=== PATIENT | female | born 1945 | race Caucasian/White ===

== ENCOUNTER → 2018-02-09 | Outpatient (CLI) | payer MEDICARE ==
--- NOTE | 2018-02-10 11:48 | MM ---
Reason for exam: screening (asymptomatic). Last mammogram was performed 2 years ago. History: Patient is postmenopausal. Physical Findings: A clinical breast exam by your physician is recommended on an annual basis and results should be correlated with mammographic findings. MG 3D Screening Mammo W/Cad Bilateral CC and MLO view(s) were taken. Prior study comparison: February 13, 2016, bilateral MG 3d screening mammo w/cad. March 08, 2014, bilateral MG screening mammo w CAD. The breast tissue is heterogeneously dense. This may lower the sensitivity of mammography. Stable benign calcifications. There is chronic nodularity bilaterally. No significant changes when compared with prior studies. ASSESSMENT: Benign, BI-RAD 2 RECOMMENDATION: Routine screening mammogram of both breasts in 1 year.
== END ==
LOC: RADMAMWWP 12:22
PROVIDERS: ATTEND Internal Medicine
DX: Z12.31 Encounter for screening mammogram for malignant neoplasm of breast (principal)
CPT/HCPCS: 77063; 77067

== ENCOUNTER → 2019-03-28 | Outpatient (CLI) | payer MEDICARE ==
--- NOTE | 2019-04-01 12:06 | MM ---
Reason for exam: screening (asymptomatic). Last mammogram was performed 1 year and 2 months ago. History: Patient is postmenopausal. Physical Findings: A clinical breast exam by your physician is recommended on an annual basis and results should be correlated with mammographic findings. MG 3D Screening Mammo W/Cad Bilateral CC and MLO view(s) were taken. Prior study comparison: February 09, 2018, bilateral MG 3d screening mammo w/cad. February 13, 2016, bilateral MG 3d screening mammo w/cad. The breast tissue is heterogeneously dense. This may lower the sensitivity of mammography. There are benign appearing round calcifications bilaterally. There is no discrete abnormality. ASSESSMENT: Benign, BI-RAD 2 RECOMMENDATION: Routine screening mammogram of both breasts in 1 year.
== END | disposition home or self-care (01) ==
LOC: RADMAMWWP 16:23
PROVIDERS: ATTEND Internal Medicine
DX: Z12.31 Encounter for screening mammogram for malignant neoplasm of breast (principal)
CPT/HCPCS: 77063; 77067

== ENCOUNTER → 2019-09-06 | Outpatient (CLI) | payer MEDICARE ==
[~2019-09-06] MED LIST: DENOSUMAB 60 MG/ML 1 ML SYRINGE SQ NR
[2019-09-06 13:00] VITALS: BP 133/83; PULSE 93; RESP 16; TEMP 98.4
== END | disposition home or self-care (01) ==
LOC: PROCWHC3 12:46
PROVIDERS: ATTEND Internal Medicine
DX: M81.0 Age-related osteoporosis without current pathological fracture (principal)
CPT/HCPCS: 96372; J0897

== ENCOUNTER → 2020-01-13 | Outpatient (CLI) | payer MEDICARE ==
--- NOTE | 2020-01-16 10:59 | MM ---
Reason for exam: clinical finding. Last mammogram was performed 10 months ago. History: Patient is postmenopausal. Physical Findings: Nurse Summary: 1cm nodule in the left breast at 2 o'clock (nurse jayleen). MG 3D Diag Mammo W/Cad [facility] Bilateral CC and MLO view(s) were taken. Prior study comparison: March 28, 2019, bilateral MG 3d screening mammo w/cad. February 09, 2018, bilateral MG 3d screening mammo w/cad. The breast tissue is heterogeneously dense. This may lower the sensitivity of mammography. There are benign appearing round calcifications bilaterally. There is no discrete abnormality. These results were verbally communicated with the patient and result sheet given to the patient on 01/13/20. ASSESSMENT: Incomplete: need additional imaging evaluation, BI-RAD 0 RECOMMENDATION: Ultrasound of the left breast.
--- NOTE | 2020-01-16 11:01 | USB ---
Reason for exam: additional evaluation requested from abnormal screening. History: Patient is postmenopausal. US Breast Limited LT Left limited breast ultrasound including focal area of concern, retroareolar and axilla demonstrates a 0.5 x 0.3 x 0.4cm irregular, taller than wide, hypoechoic lesion at 1 o'clock, duct ectasia at the posterior nipple and a 1.0 x 1.0 x 0.8cm lymph node at the axilla. These results were verbally communicated with the patient and result sheet given to the patient on 01/13/20. ASSESSMENT: Suspicious, BI-RAD 4 RECOMMENDATION: Ultrasound core biopsy of the left breast. Called Dr. Maria's office with mammographic findings and has scheduled an appointment for the patient for 02/02/20 at 9:[address] Penny. Biopsy scheduled for 02/02/20 at 10:30. PRELIMINARY REPORT CALLED AND FAXED TO DR. PENNY ON 01/16/20.
== END | disposition home or self-care (01) ==
LOC: RADMAMWWP 10:54
PROVIDERS: ATTEND Internal Medicine
DX: N63.20 Unspecified lump in the left breast, unspecified quadrant (principal); R92.8 Other abnormal and inconclusive findings on diagnostic imaging of breast
CPT/HCPCS: 77066; 76642; G0279; 77062

== ENCOUNTER → 2020-02-02 | Outpatient (CLI) | payer MEDICARE ==
[2020-02-02 09:49] VITALS: BP 174/91; PULSE 120; RESP 18; TEMP 98.7
--- NOTE | 2020-02-02 10:08 | P.GSHP ---
History of Present Illness H&P Date: 02/02/20 Chief Complaint: abnormal left breast mammogram/ultrasound Nan is a 74 year old white female seen in consultation for Dr. Tse regarding a area of nodularity in the left breast at 2:00. The patient states she also feels some nodularity at the site since Dr. Tse proceeded without to her but did not fill a prior. She had a bilateral mammogram performed and [address] which ultrasound of the left breast was recommended no specific lesions of concern were identified on the mammogram. The ultrasound was performed on the same date and this revealed was 1 x 1 cm lymph node in the axilla as well as a 0.5 x 0.4 cm irregular tolerated and wide lesion at 1:00. Ultrasound core biopsy of the left breast was recommended. The patient states that she has some mild tenderness at the site of the palpable change. She has not had any recent trauma or infection of the breast. She's never had any surgery of the breast. 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 Social History: Nicotine: none Alcohol: Negative Drugs: Negative - Constitutional Constitutional: Reports sweats - EENT Comment: wears glasses, dry eyes Ears: deny: decreased hearing, tinnitus Ears, nose, mouth and throat: Denies headache, Denies sore throat - Breasts Breasts: bilateral: as per HPI - Cardiovascular Cardiovascular: Denies chest pain, Denies shortness of breath - Respiratory Respiratory: Denies cough, Denies 7 - Gastrointestinal Gastrointestinal: Denies abdominal pain, Denies diarrhea, Denies nausea, Denies vomiting - Genitourinary (Female) Comment: UTI in past Genitourinary: Reports as per HPI - Menstruation Menstruation: Reports postmenopausal - Musculoskeletal Comment: Osteoporosis, patient is going to have a hip replacement left - Integumentary Comment: dry skin - Neurological Neurological: Denies numbness, Denies weakness - Psychiatric Psychiatric: Reports anxiety, Denies depression - Endocrine Comment: parathyroid abnormal follows with endocrine - Allergic/Immunologic Allergic/Immunologic: Reports seasonal allergies Past Medical History Past Medical History: No Reported History History of Any Multi-Drug Resistant Organisms: None Reported Additional Past Surgical History / Comment(s): 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 2019- hemmorrhoidectomy Past Anesthesia/Blood Transfusion Reactions: No Reported Reaction Past Psychological History: Anxiety Smoking Status: Never smoker Past Alcohol Use History: None Reported Past Drug Use History: None Reported Medications and Allergies Home Medications Medication Instructions Recorded Confirmed Type ALPRAZolam [Xanax] 0.25 mg PO DAILY PRN 01/25/14 02/02/20 History Atorvastatin [Lipitor] 10 mg PO HS 01/25/14 02/02/20 History Omeprazole 40 mg PO AC-BRKFST 01/25/14 02/02/20 History Calcium Carbonate [Calcium] 500 mg PO DAILY 09/06/19 02/02/20 History Ergocalciferol (Vitamin D2) 1 tab PO DAILY 09/06/19 02/02/20 History [Vitamin D2] Magnesium 500 mg PO DAILY 01/17/20 02/02/20 History Ascorbic Acid [Vitamin C] 500 mg PO QAM 02/02/20 02/02/20 History Cranberry Fruit Extract [Cranberry] 4,200 mg PO QAM 02/02/20 02/02/20 History Denosumab [Prolia] 60 mg SQ ONCE 02/02/20 02/02/20 History Multivitamins, Thera [Multivitamin 1 tab PO QAM 02/02/20 02/02/20 History (formulary)] Allergies Allergy/AdvReac Type Severity Reaction Status Date / Time No Known Allergies Allergy Verified 02/02/20 09:42 Surgical - Exam BMI 23.3 - General well developed, well nourished, no distress - Eyes normal ocular movement - ENT no hearing loss - Neck no masses, trachea midline - Respiratory normal expansion, normal respiratory effort, clear to auscultation - Cardiovascular Rhythm: regular - Abdomen Abdomen: soft, non tender, no guarding, no rigid, no rebound - Integumentary normal turgor - Neurologic no disoriented, no combative - Musculoskeletal normal gait, normal posture - Psychiatric oriented to time, oriented to person, oriented to place, speech is normal, memory intact breast exam: BRA 38A inspection: Bilateral grade 2/3 ptosis Palpation: Right breast: Multiple positional exam fibrocystic changes no dominant masses or nodules of concern Right axilla: No adenopathy of concern Left breast: Multi-positional exam increased nodularity at the 2 o'clock position left breast consistent with the area seen on ultrasound Left axilla: No adenopathy of concern Results Mammogram and ultrasound reports reviewed Assessment and Plan Assessment: Impression: 1. Abnormal ultrasound left breast at 2:00 2. Small palpable change left breast at 2:00 3. Arthritis 4. Osteoarthritis 5. Possible parathyroid abnormality Plan: 1. Ultrasound-guided core biopsy left breast 2. Follow-up after ultrasound core biopsy Risks and benefits of the procedure discussed with the patient and her . Risks include but are not limited to bleeding, infection, reaction to the anesthetic. Additionally the possibility that the types he is discordant which might necessitate removal in the operating room. Cc: encounter 25 minutes, > 50% of time in planning and counselling
== END | disposition home or self-care (01) ==
LOC: WWCWWP 08:52
PROVIDERS: ATTEND Surgery
DX: Z53.9 Procedure and treatment not carried out, unspecified reason (principal)

== ENCOUNTER → 2020-02-02 | Day surgery (SDC) | payer MEDICARE ==
[2020-02-02 10:31] VITALS: RESP 16; TEMP 98.7
[2020-02-02 11:40] VITALS: BP 112/73; PULSE 99
--- NOTE | 2020-02-02 17:46 | USB ---
EXAMINATION TYPE: US biopsy breast VAD LT DATE OF EXAM: 02/02/2020 CLINICAL HISTORY: N63 Breast lump/mass. TECHNIQUE: Ultrasound guided core biopsy of left breast. COMPARISON: Ultrasound left breast 01/13/2020 FINDINGS: The procedure of ultrasound guided core biopsy was explained to the patient. Benefits, alternatives, and risks were discussed. An informed consent was then obtained. The patient was placed in supine positioning for imaging and for the procedure. The overlying skin was prepped and draped in usual sterile fashion. 1% lidocaine was used as anesthetic into the skin and subcutaneous tissue up to area of concern in the left breast 1:00. Under ultrasound guidance, a 12-gauge vacuum assisted biopsy gun device was used to obtain 3 core samples. Following this, a biopsy clip was left in lesion. The patient tolerated the procedure well without any immediate complication. The patient was kept in the radiology department for short stay after the procedure and then discharged home in stable condition. IMPRESSION: Successful, uncomplicated ultrasound guided core biopsy of area of concern in the left breast, full pathology results to follow. Pathology Results: Benign LEFT BREAST, ULTRASOUND GUIDED CORE BIOPSY: Benign breast with focal fibrosis and prominent adipose tissue. See note. Recommendation Surgical consult of the left breast. Consider repeat biopsy and/or surgical excision. MTDD
--- NOTE | 2020-02-03 10:18 | MM ---
Reason for exam: additional evaluation requested from abnormal screening. Last mammogram was performed 1 month ago. History: Patient is postmenopausal. MG Diagnostic Mammo LT Wo CAD CC and MLO view(s) were taken of the left breast. Prior study comparison: January 13, 2020, bilateral MG 3d diag mammo w/cad [facility]. March 28, 2019, bilateral MG 3d screening mammo w/cad. ASSESSMENT: Post procedure mammogram for marker placement RECOMMENDATION: Surgical consultation of the left breast.
== END ==
LOC: RADUSWWP 08:53
PROVIDERS: ATTEND Surgery
DX: N60.32 Fibrosclerosis of left breast (principal); Z78.0 Asymptomatic menopausal state; R92.8 Other abnormal and inconclusive findings on diagnostic imaging of breast
CPT/HCPCS: 88305; 77065; 19083; A4648; J2001

== ENCOUNTER → 2020-02-09 | Outpatient (CLI) | payer MEDICARE ==
[2020-02-09 15:32] VITALS: BP 148/83; PULSE 108; RESP 18; TEMP 98.6
--- NOTE | 2020-02-09 16:26 | P.PN ---
Subjective Progress Note Date: 02/09/20 Principal diagnosis: ultrasound core biopsy results Nan is a 74 year old white female seen in consultation for Dr. Tse regarding a area of nodularity in the left breast at 2:00. The patient states she also feels some nodularity at the site since Dr. Tse proceeded without to her but did not fill a prior. She had a bilateral mammogram performed [place] 12501 which ultrasound of the left breast was recommended no specific lesions of concern were identified on the mammogram. The ultrasound was performed on the same date and this revealed was 1 x 1 cm lymph node in the axilla as well as a 0.5 x 0.4 cm irregular tolerated and wide lesion at 1:00. Ultrasound core biopsy of the left breast was recommended. The patient states that she has some mild tenderness at the site of the palpable change. She has not had any recent trauma or infection of the breast. She's never had any surgery of the breast. She underwent a left breast ultrasound core biopsy on 1020 920. Pathology revealed benign breast with focal fibrosis and prominent adipose tissue. There was some concern as to whether the actual lesion had been sampled. The radiograph was reviewed with Dr. Garcia from radiology and the recommendation was that the patient have a needle local excisional biopsy. 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 Social History: Nicotine: none Alcohol: Negative Drugs: Negative - Constitutional Constitutional: Reports sweats - EENT Comment: wears glasses, dry eyes Ears: deny: decreased hearing, tinnitus Ears, nose, mouth and throat: Denies headache, Denies sore throat - Breasts Breasts: bilateral: as per HPI - Cardiovascular Cardiovascular: Denies chest pain, Denies shortness of breath - Respiratory Respiratory: Denies cough, - Gastrointestinal Gastrointestinal: Denies abdominal pain, Denies diarrhea, Denies nausea, Denies vomiting - Genitourinary (Female) Comment: UTI in past Genitourinary: Reports as per HPI - Menstruation Menstruation: Reports postmenopausal - Musculoskeletal Comment: Osteoporosis, patient is going to have a hip replacement left - Integumentary Comment: dry skin - Neurological Neurological: Denies numbness, Denies weakness - Psychiatric Psychiatric: Reports anxiety, Denies depression - Endocrine Comment: parathyroid abnormal follows with endocrine - Allergic/Immunologic Allergic/Immunologic: Reports seasonal allergies Objective - Vital Signs Vital signs: Vital Signs Temp 98.6 F 02/09/20 15:27 Pulse 108 H 02/09/20 15:27 Resp 18 02/09/20 15:27 BP 148/83 02/09/20 15:27 Pulse Ox 95 02/09/20 15:27 Intake & Output 02/08/20 02/09/20 02/09/20 18:59 06:59 18:59 Weight 62.596 kg - Exam BMI 23.7 - Constitutional General appearance: Present: average body habitus - EENT Eyes: Present: EOMI ENT: Present: hearing grossly normal - Neck Neck: Present: normal ROM - Respiratory Respiratory: bilateral: CTA - Cardiovascular Rhythm: regular Heart sounds: normal: S1, S2 - Integumentary Integumentary Comment(s): biopsy site clean and dry - Musculoskeletal Musculoskeletal: Present: gait normal Assessment and Plan Assessment: Impression: 1. ultrasound core biopsy of left breast non diagnositic Plan: 1. needle localization and excisional biopsy of the area of concern in the left breast 2. Possible onco plastic tissue transfer Risks and benefits of the procedure discussed with the patient and her . They understand she wishes to proceed. Risks include but are not limited to bleeding, infection, reaction to the anesthetic. Additionally its possible that the needle could slip of the area of concern be missed. She understands and wishes to proceed. Cc: Dr. Tse encounter 25 minutes, > 50% of time in planning and counselling
== END | disposition home or self-care (01) ==
LOC: WWCWWP 14:53
PROVIDERS: ATTEND Surgery
DX: Z53.9 Procedure and treatment not carried out, unspecified reason (principal)

== ENCOUNTER 2020-02-28 10:19 | Day surgery (SDC) | payer MEDICARE ==
[2020-02-23 15:10] VITALS: BMI 23.6
[~2020-02-28 10:19] MED LIST changes: -DENOSUMAB 60 MG/ML 1 ML SYRINGE SQ NR; +DEXAMETHASONE SOD PHOSPHATE 4 MG/ML 1 ML VIAL IV ONE; +HEPARIN SODIUM,PORCINE 5,000 UNIT/ML 1 ML VIAL SQ ONE; +HYDROmorphone 0.5 MG/0.5 ML SYRINGE IVP PRN; +LACTATED RINGERS 1,000 ML IV SCH; +LIDOCAINE 1% (10MG/ML) FOR IV START INTRADERMA PRN; +MIDAZOLAM 2 MG/2 ML VIAL IV PRN; +ONDANSETRON 4 MG/2 ML VIAL IVP ONE; +Pre Op ABX Message 1 EACH MISC MISCELLANE ONE
[2020-02-28] MEDS ORDERED: LIDOCAINE 1% INJ 10MG/ML (20 ML MDV) SQ ONE ×3 (12:00→13:22)
[2020-02-28] MEDS ORDERED: LACTATED RINGERS 1,000 ML IV ONE (13:57)
--- NOTE | 2020-02-28 14:06 | P.OP ---
Date of Procedure: 02/28/20 Preoperative Diagnosis: Discordant core biopsy left breast Postoperative Diagnosis: Same Procedure(s) Performed: Localization excisional lumpectomy, onco-plastic tissue transfer 38 cm Anesthesia: HAYLIEA Surgeon: Estefany Penny Estimated Blood Loss (ml): 5 IV fluids (ml): 900 Pathology: other (breast tissue) Condition: stable Disposition: same day Indications for Procedure: Discordant core biopsy left breast Operative Findings: Dense breast tissue Description of Procedure: Nan is a 74-year-old white female who had a core biopsy of an area of concern in the left breast. This was felt to be discordant and needle local excisional biopsy was recommended. The risks and benefits of the procedure were discussed with the patient and she wished to proceed. The patient was taken to the operating room following needle localization of the area of concern in the left breast. Following induction of anesthesia the left breast was prepped and draped in a sterile fashion. An incision was made and carried down to the shaft of the needle. The surrounding tissue was excised. The specimen was painted for orientation. Radiograph of the specimen revealed the area of concern had been removed. Titanium clips were placed in the cavity. The cavity was 5 x 2 cm to 10 cm. Tissue was mobilized superiorly and inferiorly. Superiorly it was mobilized 5 x 2 cm = 10 cm, and inferiorly 6 x 3 cm = 18 cm. A total tissue transfer 38 cm was performed. The cavity was examined for hemostasis. After this was attained the superior and inferior pillars of tissue were brought together using 3-0 Vicryl suture. The subcutaneous tissues were closed using 3-0 Vicryl suture. The 4-0 Monocryl subcuticular suture was placed. A nylon skin suture was placed. The patient tolerated the procedure in stable condition. All instrument and sponge counts were correct at the end of the case.
--- NOTE | 2020-02-28 14:08 | P.DS ---
Providers Attending physician: Estefany Penny Primary care physician: Johnson Tse Plan - Discharge Summary Discharge Rx Participant: Yes New Discharge Prescriptions: No Action Omeprazole 40 mg PO AC-BRKFST Atorvastatin [Lipitor] 10 mg PO HS ALPRAZolam [Xanax] 0.25 mg PO DAILY PRN PRN Reason: Anxiety Magnesium 500 mg PO DAILY Denosumab [Prolia] 60 mg SQ Q180D Cranberry Fruit Extract [Cranberry] 4,200 mg PO QAM Multivitamins, Thera [Multivitamin (formulary)] 1 tab PO QAM Ascorbic Acid [Vitamin C] 500 mg PO QAM Calcium Carbonate/Vitamin D3 [Calcium 600-Vit D3 200 Tablet] 1 each PO DAILY Cholecalciferol [Vitamin D3 (25 Mcg = 1000 Iu)] 5,000 unit PO DAILY Discharge Medication List ALPRAZolam [Xanax] 0.25 mg PO DAILY PRN 01/25/14 [History] Atorvastatin [Lipitor] 10 mg PO HS 01/25/14 [History] Omeprazole 40 mg PO AC-BRKFST 01/25/14 [History] Magnesium 500 mg PO DAILY 01/17/20 [History] Ascorbic Acid [Vitamin C] 500 mg PO QAM 02/02/20 [History] Cranberry Fruit Extract [Cranberry] 4,200 mg PO QAM 02/02/20 [History] Denosumab [Prolia] 60 mg SQ Q180D 02/02/20 [History] Multivitamins, Thera [Multivitamin (formulary)] 1 tab PO QAM 02/02/20 [History] Calcium Carbonate/Vitamin D3 [Calcium 600-Vit D3 200 Tablet] 1 each PO DAILY 02/23/20 [History] Cholecalciferol [Vitamin D3 (25 Mcg = 1000 Iu)] 5,000 unit PO DAILY 02/23/20 [History] Follow up Appointment(s)/Referral(s): Estefany Penny MD [STAFF PHYSICIAN] - 10 Days Activity/Diet/Wound Care/Special Instructions: do not drive for 24 hours from [place] may shower after 48 hours wear bra at all times Discharge Disposition: HOME SELF-CARE
[2020-02-28 14:36] VITALS: TEMP 97.4
[2020-02-28 15:17] VITALS: RESP 16
[2020-02-28 16:08] VITALS: PULSE 85
[2020-02-28 16:10] VITALS: BP 134/86
--- NOTE | 2020-02-28 18:30 | MM ---
EXAMINATION TYPE: MG pre op needle loc LT, MG surgical specimen LT DATE OF EXAM: 02/28/2020 COMPARISON: 02/02/2020 and 01/13/2020 CLINICAL HISTORY: 74-year-old female referred for needle localization and excision for possibly disco rdant 1:00 left breast lesion where pathology reported benign results. TECHNIQUE: Needle localization with wire placement and surgical excision of area of concern in the 1: 00 left breast. FINDINGS: The procedure of needle localization with wire placement and than surgical excision was exp lained to the patient. Benefits, alternatives, and risks were discussed. An informed consent was th en obtained. The shortest pathway for procedure was chosen. Shortest pathway was a lateral approach. The overlyin g skin was prepped and draped in usual sterile fashion. Lidocaine was used as anesthetic into the sk in and subcutaneous tissue up to the level of area of concern. A 5 cm needle was used. It was place d via a lateral approach under mammographic guidance. Subsequent 90 degrees mammogram show the needl e to be in satisfactory position relative to the targeted area. At this point, wire was placed and t he needle was withdrawn. The wire was fixed to patient's skin. Images were marked for surgeon. The patient tolerated the procedure well without any immediate complication. The patient was kept in the radiology department for short stay after the procedure and then taken to surgery for surgical e xcision. Targeted coil clip and wire are identified in specimen mammogram. The patient was kept in hospital f or short stay after the procedure and then discharged home in stable condition. IMPRESSION: Successful, uncomplicated needle localization with wire placement and surgical excision of the 1:00 l eft breast lesion with possibly discordant results on initial biopsy. Full pathology results to adi zuñiga
== END 2020-02-28 16:41 | disposition home or self-care (01) ==
LOC: OR 10:19
PROVIDERS: ATTEND Surgery
DX: N60.12 Diffuse cystic mastopathy of left breast (principal); N62 Hypertrophy of breast; Z98.890 Other specified postprocedural states; M81.0 Age-related osteoporosis without current pathological fracture; Z96.642 Presence of left artificial hip joint; F41.9 Anxiety disorder, unspecified; J30.2 Other seasonal allergic rhinitis; Z79.899 Other long term (current) drug therapy; E78.5 Hyperlipidemia, unspecified; N28.89 Other specified disorders of kidney and ureter; K21.9 Gastro-esophageal reflux disease without esophagitis; Z91.09 Other allergy status, other than to drugs and biological substances
CPT/HCPCS: 19120; 14301; 88307; 76098; 19281; J1644; J1100; J2405; J2001

== ENCOUNTER → 2020-03-08 | Outpatient (CLI) | payer MEDICARE ==
[2020-03-08 13:32] VITALS: BP 155/103; PULSE 118; RESP 18; TEMP 97.7
--- NOTE | 2020-03-08 13:43 | P.PN ---
Progress Note - Text Progress Note Date: 03/08/20 Nan is a 74 -year-old white female status post left breast needle local excisional biopsy on 1120 420. Pathology revealed benign breast with fibrocystic changes including fiber adenomatoid hyperplasia, focal usual type ductal hyperplasia, fibrosis, cyst, and adenosis with rare microcalcifications. Postprocedure the patient has done well she did develop a rash near the bra line which is getting better at this time. lungs: clear heart: Regular rate and rhythm Left breast incision: Clean and dry no evidence of infection Impression: 1. Benign breast biopsy on the left Plan: 1. Repeat left breast mammogram and physician exam in 6 months CC: Dr. Tse
== END | disposition home or self-care (01) ==
LOC: WWCWWP 13:19
PROVIDERS: ATTEND Surgery
DX: Z53.9 Procedure and treatment not carried out, unspecified reason (principal)

== ENCOUNTER → 2020-03-22 | Outpatient (CLI) | payer MEDICARE ==
[~2020-03-22] MED LIST changes: +DENOSUMAB 60 MG/ML 1 ML SYRINGE SQ NR; -DEXAMETHASONE SOD PHOSPHATE 4 MG/ML 1 ML VIAL IV ONE; -HEPARIN SODIUM,PORCINE 5,000 UNIT/ML 1 ML VIAL SQ ONE; -HYDROmorphone 0.5 MG/0.5 ML SYRINGE IVP PRN; -LACTATED RINGERS 1,000 ML IV SCH; -LIDOCAINE 1% (10MG/ML) FOR IV START INTRADERMA PRN; -MIDAZOLAM 2 MG/2 ML VIAL IV PRN; -ONDANSETRON 4 MG/2 ML VIAL IVP ONE; -Pre Op ABX Message 1 EACH MISC MISCELLANE ONE
[2020-03-22 10:39] VITALS: BP 152/95; PULSE 98; RESP 16; TEMP 98
== END | disposition home or self-care (01) ==
LOC: PROCWHC3 10:25
PROVIDERS: ATTEND Internal Medicine
DX: M81.0 Age-related osteoporosis without current pathological fracture (principal)
CPT/HCPCS: 96372; J0897

== ENCOUNTER → 2020-04-13 | Outpatient (CLI) | payer MEDICARE ==
--- NOTE | 2020-04-13 09:08 | CT ---
EXAMINATION TYPE: CT urogram wo/w con DATE OF EXAM: 04/13/2020 HISTORY: Hematuria and UTI CT DLP: 1453.30mGycm Automated Exposure Control for Dose Reduction was Utilized. CONTRAST: CT scan of the abdomen and pelvis is performed without oral and without and with IV Contrast, patient injected with 100 ml mL of Isovue 370. Urogram protocol with 3-D reconstructed images created on an independent workstation and reviewed. COMPARISON: CT abdomen and pelvis August 02, 2015 FINDINGS: KUB: Noncontrast images show no renal calculi bilaterally. Postcontrast images show symmetric cortica l medullary uptake and excretion. No concerning solid or cystic renal mass. There is persistent promi nence of the bilateral renal pelvises left greater than right without new hydroureter or calyceal ful lness on current study. Findings consistent with extrarenal pelvis bilaterally. There is complete opa cification of bilateral ureters without obstructing calculus. No intraluminal calculus in the bladder is present. LUNG BASES: Mild Coronary artery calcification in the LAD distribution. LIVER/GB: No significant abnormality is appreciated. PANCREAS: No significant abnormality is seen. SPLEEN: No significant abnormality is seen. ADRENALS: No significant abnormality is seen. BOWEL: Incidental normal-appearing appendix in the right lower quadrant. Surgical sutures at the leve l of the distal rectum on axial image 92, Series 8. UTERUS/ADNEXA: Single tiny pelvic phlebolith anterior to uterus on axial image 83 series 8 LYMPH NODES: No greater than 1cm abdominal or pelvic lymph nodes are appreciated. OSSEOUS STRUCTURES: Straightening of thoracolumbar spine. Mild to moderate disc space narrowing L5-S1 level. Large hemangioma involving the T7 vertebra. Slight scoliotic curvature on coronal images. OTHER: Tortuous course of the abdominal aorta with mild calcified plaque IMPRESSION: Source of hematuria not identified.
== END | disposition home or self-care (01) ==
LOC: RADCTMAIN 06:26
PROVIDERS: ATTEND Urology
DX: R31.9 Hematuria, unspecified (principal); Z88.8 Allergy status to other drugs, medicaments and biological substances
CPT/HCPCS: 82565; 84520; 74178; 36415; 74400; Q9967

== ENCOUNTER → 2020-09-25 | Outpatient (CLI) | payer MEDICARE ==
--- NOTE | 2020-09-25 10:25 | MM ---
Reason for exam: additional evaluation requested from prior study. Last mammogram was performed 8 months ago. History: Patient is postmenopausal. Benign MG pre op needle loc LT of the left breast, February 28, 2020. Benign US biopsy breast VAD LT of the left breast, February 02, 2020. Physical Findings: Nurse did not find any significant physical abnormalities on exam. MG 3D Diag Mammo W/Cad LT CC and MLO view(s) were taken of the left breast. Prior study comparison: February 02, 2020, left breast MG diagnostic mammo LT wo CAD. March 28, 2019, bilateral MG 3d screening mammo w/cad. February 09, 2018, bilateral MG 3d screening mammo w/cad. The breast tissue is heterogeneously dense. This may lower the sensitivity of mammography. Stable post left breast surgical excision. These results were verbally communicated with the patient and result sheet given to the patient on 09/25/20. ASSESSMENT: Benign, BI-RAD 2 RECOMMENDATION: Follow-up diagnostic mammogram of both breasts in 4 months. Back on schedule for January 2021.
== END | disposition home or self-care (01) ==
LOC: RADMAMWWP 08:56
PROVIDERS: ATTEND Surgery
DX: R92.2 Inconclusive mammogram (principal); Z78.0 Asymptomatic menopausal state
CPT/HCPCS: 77065; G0279; 77061

== ENCOUNTER → 2020-10-05 | Outpatient (CLI) | payer MEDICARE ==
[2020-10-05 15:18] VITALS: BP 156/89; PULSE 89; RESP 18; TEMP 98
--- NOTE | 2020-10-05 15:55 | P.PN ---
Subjective Progress Note Date: 10/05/20 Principal diagnosis: fibrocystic breast changes Corrie is a 74 year old white female status post a left breast needle localization and excisional biopsy performed on [id number]. This was for a discordant core biopsy. Pathology was benign. Patient is doing well at this time she is not complaining of any new lumps masses or nodules in either breast. She had a left breast repeat mammogram performed and 620 [id number] which was benign BIRADS 2. Her last bilateral mammogram was on January 122019. Nothing of concern had been noted in the right breast. 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 Social History: Nicotine: none Alcohol: Negative Drugs: Negative - Constitutional Constitutional: Reports sweats - EENT Comment: wears glasses, dry eyes Ears: deny: decreased hearing, tinnitus Ears, nose, mouth and throat: Denies headache, Denies sore throat - Breasts Breasts: bilateral: as per HPI - Cardiovascular Cardiovascular: Denies chest pain, Denies shortness of breath - Respiratory Respiratory: Denies cough, - Gastrointestinal Gastrointestinal: Denies abdominal pain, Denies diarrhea, Denies nausea, Denies vomiting - Genitourinary (Female) Comment: UTI in past Genitourinary: Reports as per HPI - Menstruation Menstruation: Reports postmenopausal - Musculoskeletal Comment: Osteoporosis, patient is going to have a hip replacement left - Integumentary Comment: dry skin - Neurological Neurological: Denies numbness, Denies weakness - Psychiatric Psychiatric: Reports anxiety, Denies depression - Endocrine Comment: parathyroid abnormal follows with endocrine - Allergic/Immunologic Allergic/Immunologic: Reports seasonal allergies Objective - Vital Signs Vital signs: Vital Signs Temp 98.0 F 10/05/20 15:15 Pulse 89 10/05/20 15:15 Resp 18 10/05/20 15:15 BP 156/89 10/05/20 15:15 Pulse Ox 96 10/05/20 15:15 Intake & Output 10/04/20 10/05/20 10/05/20 18:59 06:59 18:59 Weight 62.142 kg - Exam BMI 23.5 - Constitutional General appearance: Present: average body habitus - EENT Eyes: Present: EOMI ENT: Present: hearing grossly normal - Neck Neck: Present: normal ROM - Respiratory Respiratory: bilateral: CTA - Cardiovascular Rhythm: regular Heart sounds: normal: S1, S2 - Integumentary Integumentary: Present: normal turgor - Musculoskeletal Musculoskeletal Comment(s): using a cane - Psychiatric Psychiatric: Present: A&O x's 3, appropriate affect, intact judgment & insight - Additional findings Additional findings: Breat exam: BRA: 38A inspection: Incision left breast clean and dry Palpation: Right breast: Multi-positional exam no dominant masses or nodules of concern Right axilla: No adenopathy of concern Left breast: Multi-positional exam fibrocystic changes, no dominant masses or nodules of concern, scar is well-healed with no evidence of infection; no residual suture is noted at the site of the scar on today's examination Left axilla: No adenopathy of concern Assessment and Plan Assessment: Impression: arthritis parathyroid abnormal Osteoporosis on prolia Fibrocystic breast changes bilateral Recent left breast mammogram benign BIRADS 2 Plan: 1. Bilateral mammogram in January 2021 with examination at that time 2. Patient to call sooner if any questions or concerns Cc: Dr. Flores
== END ==
LOC: WWCWWP 14:46
PROVIDERS: ATTEND Surgery
DX: N60.11 Diffuse cystic mastopathy of right breast (principal); N60.12 Diffuse cystic mastopathy of left breast; M19.90 Unspecified osteoarthritis, unspecified site; M81.0 Age-related osteoporosis without current pathological fracture; E21.4 Other specified disorders of parathyroid gland; Z91.048 Other nonmedicinal substance allergy status

== ENCOUNTER → 2020-10-12 | Outpatient (CLI) | payer MEDICARE ==
[~2020-10-12] MED LIST changes: -DENOSUMAB 60 MG/ML 1 ML SYRINGE SQ NR; +DENOSUMAB 60 MG/ML 1 ML SYRINGE SQ ONE
[2020-10-12 09:20] VITALS: BP 154/81; PULSE 99; RESP 16; TEMP 98.4
== END ==
LOC: PROCWHC3 09:12
PROVIDERS: ATTEND Internal Medicine
DX: M81.0 Age-related osteoporosis without current pathological fracture (principal); Z91.048 Other nonmedicinal substance allergy status
CPT/HCPCS: 96372; J0897

== ENCOUNTER → 2021-01-28 | Outpatient (CLI) | payer MEDICARE ==
--- NOTE | 2021-01-28 15:08 | MM ---
Reason for exam: additional evaluation requested from prior study. Last mammogram was performed 4 months ago. History: Patient is postmenopausal. Benign MG pre op needle loc LT of the left breast, February 28, 2020. Benign US biopsy breast VAD LT of the left breast, February 02, 2020. Took hormonal contraceptives for 10 years. Physical Findings: Nurse did not find any significant physical abnormalities on exam. MG 3D Diag Mammo W/Cad SHANNON Bilateral CC and MLO view(s) were taken. Prior study comparison: September 25, 2020, left breast MG 3d diag mammo w/cad LT. February 02, 2020, left breast MG diagnostic mammo LT wo CAD. The breast tissue is extremely dense which could obscure a lesion on mammography. Stable benign calcifications. No significant new findings when compared with previous films. These results were verbally communicated with the patient and result sheet given to the patient on 01/28/21. ASSESSMENT: Benign, BI-RAD 2 RECOMMENDATION: Routine screening mammogram of both breasts in 1 year.
== END | disposition home or self-care (01) ==
LOC: RADMAMWWP 14:08
PROVIDERS: ATTEND Surgery
DX: R92.1 Mammographic calcification found on diagnostic imaging of breast (principal); Z78.0 Asymptomatic menopausal state
CPT/HCPCS: 77066; G0279; 77062

== ENCOUNTER → 2021-02-14 | Outpatient (CLI) | payer MEDICARE ==
[2021-02-14 15:41] VITALS: BP 130/77; PULSE 100; RESP 18; TEMP 98.1
--- NOTE | 2021-02-14 15:47 | P.PN ---
Subjective Progress Note Date: 02/14/21 Principal diagnosis: fibrocystic breast changes Corrie is a 75 year old white female status post a left breast needle localization and excisional biopsy performed on . This was for a discordant core biopsy. Pathology was benign. Patient is doing well at this t sonam she is not complaining of any new lumps masses or nodules in either breast. She had a left breast repeat mammogram performed and [id number] which was benign BIRADS 2. She had a bilateral mammogram on 01-28-21 which was benign BIRD 2. 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 Social History: Nicotine: none Alcohol: Negative Drugs: Negative - Constitutional Constitutional: Reports sweats - EENT Comment: wears glasses, dry eyes Ears: deny: decreased hearing, tinnitus Ears, nose, mouth and throat: Denies headache, Denies sore throat - Breasts Breasts: bilateral: as per HPI - Cardiovascular Cardiovascular: Denies chest pain, Denies shortness of breath - Respiratory Respiratory: Denies cough, - Gastrointestinal Gastrointestinal: Denies abdominal pain, Denies diarrhea, Denies nausea, Denies vomiting - Genitourinary (Female) Comment: UTI in past Genitourinary: Reports as per HPI - Menstruation Menstruation: Reports postmenopausal - Musculoskeletal Comment: Osteoporosis, patient is going to have a hip replacement left - Integumentary Comment: dry skin - Neurological Neurological: Denies numbness, Denies weakness - Psychiatric Psychiatric: Reports anxiety, Denies depression - Endocrine Comment: parathyroid abnormal follows with endocrine - Allergic/Immunologic Allergic/Immunologic: Reports seasonal allergies Objective - Constitutional General appearance: Present: cooperative - EENT Eyes: Present: EOMI ENT: Present: hearing grossly normal - Neck Neck: Present: normal ROM - Respiratory Respiratory: bilateral: CTA - Cardiovascular Rhythm: regular Heart sounds: normal: S1, S2 - Gastrointestinal General gastrointestinal: Present: soft - Integumentary Integumentary: Present: normal turgor - Musculoskeletal Musculoskeletal: Present: gait normal - Psychiatric Psychiatric: Present: A&O x's 3, appropriate affect, intact judgment & insight - Additional findings Additional findings: Breast Exam: BRA: 38 B Specimen: Bilateral grade 2 ptosis Palpation: Right breast: Positional exam fibrocystic changes no dominant masses or nodules of concern Right axilla: No adenopathy of concern Left breast: Multiple positional exam fibrocystic changes no dominant masses or nodules of concern Left axilla: No adenopathy of concern Assessment and Plan Assessment: Impression: Fibrocystic breast changes Recent bilateral mammogram benign BIRADS 2 10-25-21 Plan: 1. Repeat bilateral mammogram in 1 year with physician exam of the breast CC: Dr. Flores
== END ==
LOC: WWCWWP 15:18
PROVIDERS: ATTEND Surgery
DX: N60.11 Diffuse cystic mastopathy of right breast (principal); N60.12 Diffuse cystic mastopathy of left breast; M81.0 Age-related osteoporosis without current pathological fracture; M19.90 Unspecified osteoarthritis, unspecified site; Z91.048 Other nonmedicinal substance allergy status

== ENCOUNTER → 2021-04-18 | Outpatient (CLI) | payer MEDICARE ==
[~2021-04-18] MED LIST changes: +DENOSUMAB 60 MG/ML 1 ML SYRINGE SQ NR; -DENOSUMAB 60 MG/ML 1 ML SYRINGE SQ ONE
[2021-04-18 09:38] VITALS: BP 149/83; PULSE 104; RESP 16; TEMP 98.1
== END | disposition home or self-care (01) ==
LOC: PROCWHC3 09:21
PROVIDERS: ATTEND Internal Medicine
DX: M81.0 Age-related osteoporosis without current pathological fracture (principal)
CPT/HCPCS: 96372; J0897

== ENCOUNTER → 2021-10-21 | Outpatient (CLI) | payer MEDICARE ==
[2021-10-21 09:49] VITALS: BP 143/85; PULSE 90; RESP 16; TEMP 98.2
== END ==
LOC: PROCWHC3 09:40
PROVIDERS: ATTEND Internal Medicine
DX: M81.0 Age-related osteoporosis without current pathological fracture (principal); Z91.048 Other nonmedicinal substance allergy status
CPT/HCPCS: 96372; J0897

== ENCOUNTER → 2022-01-30 | Outpatient (CLI) | payer MEDICARE ==
--- NOTE | 2022-01-31 07:49 | MM ---
Reason for Exam: Screening (asymptomatic). Last screening mammogram was performed 12 month(s) ago. Patient History: Menarche at age 12. First Full-Term at age 23. Postmenopausal. Patient used Hormonal Contraceptives for 10 years. 02/28/2020, Benign Core Biopsy on the left side. 02/02/2020, Benign Core Biopsy on the left side. Risk Values: Beverly 5 year model risk: 2.4%. NCI Lifetime model risk: 4.8%. Prior Study Comparison: 02/09/2018 Bilateral Screening Mammogram, [facility]. 03/28/2019 Bilateral Screening Mammogram, [facility] 01/13/2020 Bilateral Diagnostic Mammogram, [facility]. 02/02/2020 Left Diagnostic Mammogram, [facility]. 09/25/2020 Left Diagnostic Mammogram, [facility]. 01/28/2021 Bilateral Diagnostic Mammogram, [facility]. Tissue Density: The breast tissue is heterogeneously dense. This may lower the sensitivity of mammography. Findings: Analyzed By CAD. There is no suspicious group of microcalcifications or new suspicious mass in either breast. Overall Assessment: Benign, BI-RAD 2 Management: Screening Mammogram of both breasts in 1 year. A clinical breast exam by your physician is recommended on an annual basis and results should be correlated with mammographic findings. Electronically signed and approved by: Alonzo Curtis M.D. Radiologis
== END | disposition home or self-care (01) ==
LOC: RADMAMWWP 09:33
PROVIDERS: ATTEND Surgery
DX: Z12.31 Encounter for screening mammogram for malignant neoplasm of breast (principal); Z78.0 Asymptomatic menopausal state
CPT/HCPCS: 77063; 77067

== ENCOUNTER → 2022-02-06 | Outpatient (CLI) | payer MEDICARE ==
[2022-02-06 10:52] VITALS: BP 147/84; PULSE 97; RESP 16; TEMP 97.9
--- NOTE | 2022-02-06 11:11 | P.PN ---
Subjective Progress Note Date: 02/06/22 Principal diagnosis: Fibrocystic breast changes Corrie is a 76 year old white female status post a left breast needle localization and excisional biopsy performed on . This was for a discordant core biopsy. Pathology was benign. Patient is doing well at this time she is not complaining of any new lumps masses or nodules in either breast. She had a left breast repeat mammogram performed on which was benign BIRADS 2. She had a bilateral mammogram on 01-30-22 which was benign BIRD 2. 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 Social History: Nicotine: none Alcohol: Negative Drugs: Negative - Constitutional Constitutional: Reports sweats - EENT Comment: wears glasses, dry eyes Ears: deny: decreased hearing, tinnitus Ears, nose, mouth and throat: Denies headache, Denies sore throat - Breasts Breasts: bilateral: as per HPI - Cardiovascular Cardiovascular: Denies chest pain, Denies shortness of breath - Respiratory Respiratory: Denies cough, - Gastrointestinal Gastrointestinal: Denies abdominal pain, Denies diarrhea, Denies nausea, Denies vomiting - Genitourinary (Female) Comment: UTI in past Genitourinary: Reports as per HPI - Menstruation Menstruation: Reports postmenopausal - Musculoskeletal Comment: Osteoporosis, patient is going to have a hip replacement left - Integumentary Comment: dry skin - Neurological Neurological: Denies numbness, Denies weakness - Psychiatric Psychiatric: Reports anxiety, Denies depression - Endocrine Comment: parathyroid abnormal follows with endocrine - Allergic/Immunologic Allergic/Immunologic: Reports seasonal allergies Objective - Vital Signs Vital signs: Vital Signs Temp 97.9 F 02/06/22 10:49 Pulse 97 02/06/22 10:49 Resp 16 02/06/22 10:49 BP 147/84 02/06/22 10:49 Pulse Ox 97 02/06/22 10:49 FiO2 Intake & Output 02/05/22 02/06/22 02/06/22 18:59 06:59 18:59 Weight 62.142 kg - Exam BMI: 23.5 - Constitutional General appearance: Present: cooperative - EENT Eyes: Present: EOMI ENT: Present: hearing grossly normal - Respiratory Respiratory: bilateral: CTA - Cardiovascular Rhythm: regular Heart sounds: normal: S1, S2 - Gastrointestinal General gastrointestinal: Present: soft - Integumentary Integumentary: Present: normal turgor - Musculoskeletal Musculoskeletal: Present: gait normal - Psychiatric Psychiatric: Present: A&O x's 3, appropriate affect, intact judgment & insight - Additional findings Additional findings: Breast Exam: BRA; 40B Inspection: Bilateral grade 2 ptosis Palpation: Right breast: Multiple positional exam fibrocystic changes no dominant masses or nodules of concern Right axilla: No adenopathy of concern Left breast: Multiple positional exam fibrocystic changes no dominant masses or nodules of concern Left axilla: No adenopathy of concern Assessment and Plan Assessment: Impression: Bilateral fibrocystic breast changes Bilateral mammogram [id number] BIRADS 2 Beverly risk evaluation 2.4% five-year risk; discussed risk reduction via hormone therapy blocking and the patient has declined at this time Plan: Repeat bilateral mammogram at 1 year with physician exam at that time Patient to follow up sooner any questions or concerns CC: Dr. Flores
== END | disposition home or self-care (01) ==
LOC: WWCWWP 10:37
PROVIDERS: ATTEND Surgery
DX: Z53.9 Procedure and treatment not carried out, unspecified reason (principal)

== ENCOUNTER → 2022-04-24 | Outpatient (CLI) | payer MEDICARE ==
[2022-04-24 12:38] VITALS: BP 148/90; PULSE 92; RESP 15; TEMP 97.9
== END ==
LOC: PROCWHC3 12:13
PROVIDERS: ATTEND Internal Medicine
DX: M81.0 Age-related osteoporosis without current pathological fracture (principal); Z91.048 Other nonmedicinal substance allergy status
CPT/HCPCS: 96372; J0897

== ENCOUNTER → 2022-10-31 | Outpatient (CLI) | payer MEDICARE ==
[~2022-10-31] MED LIST changes: -DENOSUMAB 60 MG/ML 1 ML SYRINGE SQ NR; +DENOSUMAB 60 MG/ML 1 ML SYRINGE SQ ONE
[2022-10-31 13:52] VITALS: BP 154/82; PULSE 83; RESP 16; TEMP 98
== END ==
LOC: PROCWHC3 13:36
PROVIDERS: ATTEND Internal Medicine
DX: M81.0 Age-related osteoporosis without current pathological fracture (principal)
CPT/HCPCS: 96372; J0897

== ENCOUNTER → 2023-02-02 | Outpatient (CLI) | payer MEDICARE ==
--- NOTE | 2023-02-03 10:18 | MM ---
Reason for Exam: Screening (asymptomatic). Last screening mammogram was performed 12 month(s) ago. Patient History: Menarche at age 12. First Full-Term at age 23. Postmenopausal. Patient used Hormonal Contraceptives for 10 years. 02/28/2020, Benign Core Biopsy on the left side. 02/02/2020, Benign Core Biopsy on the left side. Risk Values: Beverly 5 year model risk: 2.3%. NCI Lifetime model risk: 4.5%. Prior Study Comparison: 09/25/2020 Left Diagnostic Mammogram, [facility]. 01/28/2021 Bilateral Diagnostic Mammogram, [facility]. 01/30/2022 Bilateral MG 3D screening mammo w/cad, [facility]. Tissue Density: The breast tissue is heterogeneously dense. This may lower the sensitivity of mammography. Findings: Analyzed By CAD. Pattern appears symmetrical and stable. Surgical clips are within left breast. Benign round calcifications are within the left breast. No significant interval changes are evident No suspicious groups of microcalcifications, spiculated or lobular masses, architectural distortion or other secondary signs of malignancy are mammographically apparent. Overall Assessment: Benign, BI-RAD 2 Management: Screening Mammogram of both breasts in 1 year. A negative mammogram report should not preclude additional follow up of suspicious palpable abnormalities. Patient should continue monthly self breast exam. A clinical breast exam by your physician is recommended on an annual basis and results should be correlated with mammographic findings. Electronically signed and approved by: Emir Mantilla D.O. Radiologis
== END | disposition home or self-care (01) ==
LOC: RADMAMWWP 09:00
PROVIDERS: ATTEND Surgery
DX: Z12.31 Encounter for screening mammogram for malignant neoplasm of breast (principal); Z78.0 Asymptomatic menopausal state
CPT/HCPCS: 77063; 77067

== ENCOUNTER → 2023-03-12 | Outpatient (CLI) | payer MEDICARE ==
--- NOTE | 2023-03-12 16:00 | P.PN ---
Subjective Progress Note Date: 03/12/23 Principal diagnosis: fibrocystic breast changes Fibrocystic breast changes Corrie is a 77 year old white female status post a left breast needle localization and excisional biopsy performed on . This was for a discordant core biopsy. Pathology was benign. Patient is doing well at this time she is not complaining of any new lumps masses or nodules in either breast. She had a left breast repeat mammogram performed on which was benign BIRADS 2. She had a bilateral mammogram on 02-02-23 which was benign BIRD 2. 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 Social History: Nicotine: none Alcohol: Negative Drugs: Negative - Constitutional Constitutional: Reports sweats - EENT Comment: wears glasses, dry eyes Ears: deny: decreased hearing, tinnitus Ears, nose, mouth and throat: Denies headache, Denies sore throat - Breasts Breasts: bilateral: as per HPI - Cardiovascular Cardiovascular: Denies chest pain, Denies shortness of breath - Respiratory Respiratory: Denies cough, - Gastrointestinal Gastrointestinal: Denies abdominal pain, Denies diarrhea, Denies nausea, Denies vomiting - Genitourinary (Female) Comment: UTI in past Genitourinary: Reports as per HPI - Menstruation Menstruation: Reports postmenopausal - Musculoskeletal Comment: Osteoporosis, patient is going to have a hip replacement left - Integumentary Comment: dry skin - Neurological Neurological: Denies numbness, Denies weakness - Psychiatric Psychiatric: Reports anxiety, Denies depression - Endocrine Comment: parathyroid abnormal follows with endocrine - Allergic/Immunologic Allergic/Immunologic: Reports seasonal allergies Objective - Constitutional General appearance: Present: cooperative - EENT Eyes: Present: EOMI ENT: Present: hearing grossly normal - Neck Neck: Present: normal ROM - Respiratory Respiratory: bilateral: CTA - Cardiovascular Heart sounds: normal: S1, S2 - Integumentary Integumentary: Present: normal turgor - Musculoskeletal Musculoskeletal: Present: gait normal - Psychiatric Psychiatric: Present: A&O x's 3, appropriate affect, intact judgment & insight - Additional findings Additional findings: Breast Exam: BRA; 40B Inspection: Bilateral grade 2 ptosis Palpation: Right breast: Multiple positional exam fibrocystic changes no dominant masses or nodules of concern Right axilla: No adenopathy of concern Left breast: Multiple positional exam fibrocystic changes no dominant masses or nodules of concern Left axilla: No adenopathy of concern Assessment and Plan Assessment: Impression: Bilateral fibrocystic breast changes Bilateral mammogram 02-02-23 BIRADS 2 Beverly risk evaluation 2.3% five-year risk; discussed risk reduction via hormone therapy blocking and the patient has declined at this time Plan: Repeat bilateral mammogram at 1 year with physician exam at that time Patient to follow up sooner any questions or concerns CC: Dr. Flores
[2023-03-12 16:12] VITALS: BP 153/89; PULSE 84; RESP 17; TEMP 98.3
== END ==
LOC: WWCWWP 15:40
PROVIDERS: ATTEND Surgery
DX: Z12.31 Encounter for screening mammogram for malignant neoplasm of breast (principal); N60.12 Diffuse cystic mastopathy of left breast; N60.11 Diffuse cystic mastopathy of right breast; M81.0 Age-related osteoporosis without current pathological fracture; N13.9 Obstructive and reflux uropathy, unspecified; Z87.19 Personal history of other diseases of the digestive system; Z96.642 Presence of left artificial hip joint; Z98.890 Other specified postprocedural states; Z91.018 Allergy to other foods

== ENCOUNTER → 2023-05-04 | Outpatient (CLI) | payer MEDICARE ==
[~2023-05-04] MED LIST changes: +DENOSUMAB 60 MG/ML 1 ML SYRINGE SQ NR; -DENOSUMAB 60 MG/ML 1 ML SYRINGE SQ ONE
[2023-05-04 14:20] VITALS: BP 153/89; PULSE 102; RESP 16; TEMP 97.5
== END ==
LOC: PROCWHC3 13:41
PROVIDERS: ATTEND Internal Medicine
DX: M81.0 Age-related osteoporosis without current pathological fracture (principal)
CPT/HCPCS: 96372; J0897

== ENCOUNTER → 2023-11-03 | Outpatient (CLI) | payer MEDICARE ==
[2023-11-03 14:38] VITALS: BP 133/88; PULSE 95; RESP 14; TEMP 97.8
[2023-11-03] MEDS: DENOSUMAB 60 MG/ML 1 ML SYRINGE SQ ONE (14:38)
== END ==
LOC: PROCWHC3 14:24
PROVIDERS: ATTEND Internal Medicine
DX: M81.0 Age-related osteoporosis without current pathological fracture (principal)
CPT/HCPCS: 96372; J0897

== ENCOUNTER → 2024-02-04 | Outpatient (CLI) | payer MEDICARE ==
--- NOTE | 2024-02-04 11:44 | MM ---
Reason for Exam: Screening (asymptomatic). Last screening mammogram was performed 12 month(s) ago. Patient History: Menarche at age 12. First Full-Term at age 23. Postmenopausal. Patient used Hormonal Contraceptives for 10 years. 02/28/2020, Benign Core Biopsy on the left side. 02/02/2020, Benign Core Biopsy on the left side. Risk Values: Beverly 5 year model risk: 2.3%. NCI Lifetime model risk: 4.1%. Prior Study Comparison: 01/28/2021 Bilateral Diagnostic Mammogram, [facility]. 01/30/2022 Bilateral MG 3D screening mammo w/cad, [facility]. 02/02/2023 Bilateral MG 3D screening mammo w/cad, [facility]. Tissue Density: The breasts are heterogeneously dense, which may obscure small masses. Findings: Analyzed By CAD. Right breast: There is no suspicious group of microcalcifications or new suspicious mass. Left breast: There is no suspicious group of microcalcifications or new suspicious mass. Overall Assessment: Negative, BI-RAD 1 Management: Screening Mammogram of both breasts in [address] [facility] will attempt to contact patient to return for supplemental views and ultrasound if indicated. Patient should continue monthly self-breast exams. A clinical breast exam by your physician is recommended on an annual basis. This exam should not preclude additional follow-up of suspicious palpable abnormalities. Note on Beverly scores and lifetime risk: 1. A Beverly score greater than 3% is considered moderate risk. If this is the case, consider specialist referral to assess eligibility for a risk reducing agent. 2. If overall lifetime risk for the development of breast cancer is 20% or higher, the patient may qualify for future screening with alternating mammogram and breast MRI. [facility], , 02/04/2024 11:41 AM. Electronically signed and approved by: Tomasz Marie DO
== END | disposition home or self-care (01) ==
LOC: RADMAMWWP 09:24
PROVIDERS: ATTEND Surgery
CPT/HCPCS: 77063; 77067

== ENCOUNTER → 2024-02-11 | Outpatient (CLI) | payer MEDICARE ==
[2024-02-11 10:50] VITALS: BP 138/78; PULSE 101; RESP 16; TEMP 98.1
--- NOTE | 2024-02-11 10:56 | P.PN ---
Subjective Progress Note Date: 02/11/24 Principal diagnosis: fibrocystic breast disease 02-11-24 Principal diagnosis: fibrocystic breast changes Corrie is a 78 year old white female status post a left breast needle localization and excisional biopsy performed on . This was for a discordant core biopsy. Pathology was benign. Patient is doing well at this time she is not complaining of any new lumps masses or nodules in either breast. She had a left breast repeat mammogram performed on which was benign BIRADS 2. She had a bilateral mammogram on 02-02-23 which was benign BIRD 2. Most recent mammogram on 02-04-24 BIRAD 1 personally interpreted. She is not complaining of any new lumps masses or nodules in either breast. 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 Social History: Nicotine: none Alcohol: Negative Drugs: Negative - Constitutional Constitutional: Reports sweats - EENT Comment: wears glasses, dry eyes Ears: deny: decreased hearing, tinnitus Ears, nose, mouth and throat: Denies headache, Denies sore throat - Breasts Breasts: bilateral: as per HPI - Cardiovascular Cardiovascular: Denies chest pain, Denies shortness of breath - Respiratory Respiratory: Denies cough, - Gastrointestinal Gastrointestinal: Denies abdominal pain, Denies diarrhea, Denies nausea, Denies vomiting - Genitourinary (Female) Comment: UTI in past Genitourinary: Reports as per HPI - Menstruation Menstruation: Reports postmenopausal - Musculoskeletal Comment: Osteoporosis, patient is going to have a hip replacement left - Integumentary Comment: dry skin - Neurological Neurological: Denies numbness, Denies weakness - Psychiatric Psychiatric: Reports anxiety, Denies depression - Endocrine Comment: parathyroid abnormal follows with endocrine - Allergic/Immunologic Allergic/Immunologic: Reports seasonal allergies Objective - Vital Signs Vital signs: Intake & Output 02/10/24 02/11/24 02/11/24 18:59 06:59 18:59 Weight 62.596 kg - Constitutional General appearance: Present: cooperative - EENT Eyes: Present: EOMI ENT: Present: hearing grossly normal - Neck Neck: Present: normal ROM - Respiratory Respiratory: bilateral: CTA - Cardiovascular Rhythm: regular Heart sounds: normal: S1, S2 - Integumentary Integumentary: Present: normal turgor - Musculoskeletal Musculoskeletal: Present: gait normal - Psychiatric Psychiatric: Present: A&O x's 3, appropriate affect, intact judgment & insight - Additional findings Additional findings: Breast Exam: BRA; 40B Inspection: Bilateral grade 2 ptosis Palpation: Right breast: Multiple positional exam fibrocystic changes no dominant masses or nodules of concern Right axilla: No adenopathy of concern Left breast: Multiple positional exam fibrocystic changes no dominant masses or nodules of concern Left axilla: No adenopathy of concern Assessment and Plan Assessment: Impression: Bilateral fibrocystic breast changes Bilateral mammogram 02-04-24 BIRADS 1, personally reviewed Beverly risk evaluation 2.3% five-year risk; discussed risk reduction via hormone therapy blocking and the patient has declined at this time Plan: Repeat bilateral mammogram at 1 year, January 2025 with physician exam at that time Patient to follow up sooner any questions or concerns CC: Dr. Flores
== END ==
LOC: WWCWWP 10:37
PROVIDERS: ATTEND Surgery
DX: R92.8 Other abnormal and inconclusive findings on diagnostic imaging of breast (principal); N60.11 Diffuse cystic mastopathy of right breast; N60.12 Diffuse cystic mastopathy of left breast; Z91.048 Other nonmedicinal substance allergy status

== ENCOUNTER → 2024-05-06 | Outpatient (CLI) | payer MEDICARE ==
[2024-05-06 14:14] VITALS: BP 151/74; RESP 16; TEMP 97.6
[2024-05-06] MEDS: DENOSUMAB 60 MG/ML 1 ML SYRINGE SQ NR (14:14)
== END ==
LOC: PROCWHC3 14:05
PROVIDERS: ATTEND Internal Medicine
DX: M81.0 Age-related osteoporosis without current pathological fracture (principal)
CPT/HCPCS: 96372; J0897